=== PATIENT | female | born 1965 | race Caucasian/White ===

== ENCOUNTER 2023-01-10 07:06 | Day surgery (SDC) | payer OTHER ==
[~2023-01-10] VITALS: Ht 167.6 cm; Wt 71.7 kg
[2023-01-10] MEDS ORDERED: fentaNYL citrate 0.05 MG/ML VIAL ONE (07:42)
[2023-01-10] MEDS ORDERED: MIDAZOLAM 2 MG/2 ML VIAL ONE (07:43)
[2023-01-10] MEDS ORDERED: LIDOCAINE 2% 100 MG/5 ML UJET TP ONE (07:43)
[2023-01-10] MEDS ORDERED: MIDAZOLAM 2 MG/2 ML VIAL IVP ONE ×2 (08:35→08:40)
== END 2023-01-10 10:00 | disposition home or self-care (01) ==
LOC: MDS 07:06 → MMU 07:06 → MDS 10:00
PROVIDERS: ATTEND Internal Medicine Gastroenterology
DX: K52.9 Noninfective gastroenteritis and colitis, unspecified (principal); Z86.010 Personal history of colon polyps; E78.5 Hyperlipidemia, unspecified; E66.9 Obesity, unspecified; Z79.899 Other long term (current) drug therapy; Z98.84 Bariatric surgery status
CPT/HCPCS: 45378; J2250; J3010; J7030